=== PATIENT | male | born 1965 ===

== ENCOUNTER → 2019-06-16 | Outpatient (CLI) | payer BC | END | disposition home or self-care (01) | LOC: PREOP 05:49 | PROVIDERS: ATTEND Internal Medicine | DX: Z01.818 Encounter for other preprocedural examination (principal) ==

== ENCOUNTER 2020-03-04 09:48 | Outpatient (RCR) | payer BC ==
[~2020-03-04] VITALS: Ht 172.7 cm; Wt 69.5 kg
== END 2020-03-04 14:54 | disposition home or self-care (01) ==
LOC: PREOP 09:48
PROVIDERS: ATTEND Internal Medicine
DX: Z01.818 Encounter for other preprocedural examination (principal); Z11.59 Encounter for screening for other viral diseases
CPT/HCPCS: 87635

== ENCOUNTER 2020-03-08 07:51 | Day surgery (SDC) | payer BC ==
--- NOTE | 2019-06-23 09:22 | HISTORY AND PHYSICAL ---
DATE OF SERVICE: 06/23/2019 The patient is a 53-year-old white male who is noted to have an elevated PSA at the time of screening blood work in April, his level was 4. He denies any problems with nocturia, decrease in stream, dribbling or urinary incontinence. He has no frequency or urgency. He had not previously had screening colonoscopy, so I advised colonoscopy and digital rectal evaluation at that time as he is anxious about having digital rectal evaluation. He is deemed to be of average risk. He is not aware of any family history for colon polyps or colon cancer. The procedure was discussed with the patient and questions were answered. PAST MEDICAL HISTORY: Noncontributory. MEDICATIONS AND PAST SURGICAL HISTORY: He takes no medication and has no past surgical history. PHYSICAL EXAMINATION: VITAL SIGNS: Blood pressure 122/78. CHEST: Clear. CARDIOVASCULAR: Reveals a regular rate and rhythm without murmur, S3 or S4. 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 ASSESSMENT AND PLAN: The patient was set up for screening colonoscopy. His PSA was mildly elevated at 4 with no symptoms to suggest BPH. Careful attention to digital rectal evaluation at the time of colonoscopy with further recommendations and at minimum and early PSA in 6 months. Job ID: [id number] DocumentID: [id number] Dictated Date: 05/25/2019 16:33:54 Billing Collections Specialist Date: 05/25/2019 16:57:20 Dictated By: ODESSA HOPKINS MD [facility]
--- NOTE | 2020-03-05 08:07 | HISTORY AND PHYSICAL ---
DATE OF SERVICE: COLONOSCOPY HISTORY AND PHYSICAL HISTORY OF PRESENT ILLNESS: The patient is a 53-year-old white male seen for yearly wellness evaluation on 02/19/2020. His first PSA was slightly elevated for age, 6 months ago at which time he was noted to have moderate BPH without nodularity. He was here for an early PSA check and wellness evaluation. He denies any difficulty with decrease in stream or increase in urinary frequency. He rarely has to get up at night to go to the bathroom. There is no known family history for prostate cancer. He is not aware of any family history for colon cancer and has not accomplished screening colonoscopy in the past. He states that he has been feeling well. With COVID issues, he has not been getting as much activity and does not typically exercises on a regular basis. SOCIAL HISTORY: He is employed, with no past smoking history and occasional social alcohol intake. He has no past surgical history and takes no current medication. FAMILY HISTORY: Updated. Father at age 75, had history of vascular disease, underwent coronary artery bypass grafting in his early 70s and also had hyperlipidemia. Mother is living at the age of 80. He reports no major health problems. He has one brother in his 50s who has elevated cholesterol and three sisters with no reported health problems. None of the siblings have a history of vascular disease or malignancy. PHYSICAL EXAMINATION: GENERAL: Reveals a well-appearing male in no acute distress. VITAL SIGNS: Weight was stable at 153 pounds, BMI 24, blood pressure 130/78. CHEST: Clear. HEENT: Mallampati 2 oropharyngeal configuration. CARDIOVASCULAR: Regular rate and rhythm without murmur, S3 or S4. CHEST: Clear. ABDOMEN: Soft, supple without mass, organomegaly or tenderness. Bowel sounds positive. EXTREMITIES: Reveal no cyanosis, clubbing or edema. Ear canals were clear with normal TMs. SKIN: Evaluation revealed no suspicious nevi. ASSESSMENT AND PLAN: Unremarkable wellness evaluation. Discussed rationale for colonoscopy for which the patient was agreeable. The patient will be set up for his first screening colonoscopy. I did repeat his digital rectal evaluation today. This again was compatible with moderate BPH with no nodularity being noted. His PSA was 4.22 compared to 4 ten months ago. We will go back to yearly PSA monitoring and yearly wellness evaluation. Job ID: [id number] DocumentID: [id number] Dictated Date: 02/21/2020 16:11:26 Front End Mechanic Date: 02/21/2020 16:36:38 Dictated By: ODESSA HOPKINS MD [facility]
[~2020-03-08] VITALS: Ht 172.7 cm; Wt 69.5 kg
[2020-03-08] VITALS (12 sets, daily range): BP systolic 109–134; BP diastolic 76–98
[~2020-03-08 07:51] MED LIST: D5 LR IV SOLUTION 1,000 ML IV ONE
[2020-03-08] MEDS ORDERED: D5 LR IV SOLUTION 1,000 ML IV STA (07:59)
[2020-03-08] MEDS ORDERED: MIDAZOLAM 5 MG/5 ML (VERSED) VIAL IV PRN (08:00)
[2020-03-08] MEDS ORDERED: fentaNYL INJECTION 100 MCG/2 ML AMP IVP ONE (08:00)
[2020-03-08] MEDS ORDERED: LIDOCAINE JELLY 2% 6 ML SYRINGE MM PRN (08:00)
--- NOTE | 2020-03-08 08:03 | Pre-Op Note & Conscious Sedat ---
Pre-Operative Progress Note H&P Reviewed The H&P was reviewed, patient examined and no changes noted. Date H&P Reviewed: March 08, 2020 Time H&P Reviewed: 08:02 Conscious Sedation Pre-Proced ASA Score 2 For ASA 3 and 4: Consider anesthesia and medical clearance. Also, for patients with a history of failed moderate sedation consider anesthesia. Airway Lungs Heart ASA score ASA 1: a normal healthy patient ASA 2: a patient with a mild systemic disease (mid diabetes, controlled hypertension, obesity ASA 3: a patient with a severe systemic disease that limits activity (angina, COPD, prior Myocardial infarction) ASA 4: a patient with an incapacitating disease that is a constant threat to life (CHF, renal failure) ASA 5: a moribund patient not expected to survive 24 hrs. (ruptured aneurysm) ASA 6: a declared brain- patient whose organs are being harvested. For emergent operations, add the letter E after the classification Mallampati Classification Grade 1 Sedation Plan Analgesia, Amnesia, Plan communicated to team members, Discussed options with patient/fam, Discussed risks with patient/fam The patient is an appropriate candidate to undergo the planned procedure, sedation, and anesthesia. The patient immediately re-assessed prior to indication. ODESSA HOPKINS MD March 08, 2020 08:03
[2020-03-08] MEDS ORDERED: fentaNYL INJECTION 100 MCG/2 ML AMP ONE (08:16)
[2020-03-08] MEDS ORDERED: LIDOCAINE JELLY 2% 6 ML SYRINGE ONE (08:16)
[2020-03-08] MEDS ORDERED: MIDAZOLAM 5 MG/5 ML (VERSED) VIAL ONE (08:16)
--- OUTSIDE RECORDS SUMMARY | 2020-03-08 09:36 | XMS REPORT | Continuity of Care Document ---
Author Organization Unknown Address Unknown Phone Unavailable Allergies Active Description Code Type Severity Reaction Onset Reported/Identified Relationship to Patient Clinical Status Yes No Known Drug Allergies [id number] Drug Allergy Unknown N/A 03/04/2020 Medications There is no data. Problems Date Dx Coded Attending Type Code Diagnosis Diagnosed By 09/16/1453 ODESSA HOPKINS MD Ot Z01.818 ENCOUNTER FOR OTHER PREPROCEDURAL EXAMIN 09/16/1453 ODESSA HOPKINS MD Ot Z11. 59 ENCOUNTER FOR SCREENING FOR OTHER VIRAL 06/20/2019 ODESSA HOPKINS MD Ot Z01.818 ENCOUNTER FOR OTHER PREPROCEDURAL EXAMIN 06/21/2019 ODESSA HOPKINS MD Ot Z01.818 ENCOUNTER FOR OTHER PREPROCEDURAL EXAMIN 03/04/2020 ODESSA HOPKINS MD Ot Z01.818 ENCOUNTER FOR OTHER PREPROCEDURAL EXAMIN 03/04/2020 ODESSA HOPKINS MD Ot Z01.818 ENCOUNTER FOR OTHER PREPROCEDURAL EXAMIN 03/04/2020 ODESSA HOPKINS MD Ot Z01.818 ENCOUNTER FOR OTHER PREPROCEDURAL EXAMIN 03/04/2020 ODESSA HOPKINS MD Ot Z01.818 ENCOUNTER FOR OTHER PREPROCEDURAL EXAMIN 03/04/2020 ODESSA HOPKINS MD Ot Z01.818 ENCOUNTER FOR OTHER PREPROCEDURAL EXAMIN 03/04/2020 ODESSA HOPKINS MD Ot Z01.818 ENCOUNTER FOR OTHER PREPROCEDURAL EXAMIN 03/04/2020 ODESSA HOPKINS MD Ot Z01.818 ENCOUNTER FOR OTHER PREPROCEDURAL EXAMIN 03/04/2020 ODESSA HOPKINS MD Ot Z01.818 ENCOUNTER FOR OTHER PREPROCEDURAL EXAMIN 03/04/2020 ODESSA HOPKINS MD Ot Z01.818 ENCOUNTER FOR OTHER PREPROCEDURAL EXAMIN 03/04/2020 ODESSA HOPKINS MD Ot Z11. 59 ENCOUNTER FOR SCREENING FOR OTHER VIRAL 03/08/2020 ODESSA HOPKINS MD Ot Z01.818 ENCOUNTER FOR OTHER PREPROCEDURAL EXAMIN Procedures There is no data. Results Test Result Range Coronavirus SARS-CoV-2 SO 2018 - 0 13:15 Coronavirus Ab [Units/volume] in Serum Negative Negative Encounters ACCT No. Visit Date/Time Discharge Status Pt. Type Provider Facility Loc./Unit Complaint [id number] 03/04/2020 09:48:00 020 14:54:00 DIS Outpatient ODESSA HOPKINS MD [facility] PREOP COLONOSCOPY [id number] 06/16/2019 05:49:00 019 23:59:59 CLS Outpatient ODESSA HOPKINS MD [facility] PREOP COLONOSCOPY [id number] 03/08/2020 07:51:[address] Outpatient ODESSA HOPKINS MD [facility] ENDO SCREENING
--- NOTE | 2020-03-08 16:52 | OPERATIVE REPORT ---
DATE OF SERVICE: COLONOSCOPY SUMMARY INDICATION FOR THE PROCEDURE: Screening colonoscopy. DESCRIPTION OF PROCEDURE: The patient was placed in the left lateral decubitus position. As the patient just had a digital rectal evaluation in the office, digital rectal evaluation was not performed. The colonoscope was inserted into the rectum and under direct visualization advanced to cecum. The cecum was identified by identification of the valve and cecal strap. Photographic documentation was obtained. A careful inspection was made as the colonoscope was withdrawn. The patient tolerated the procedure well. FINDINGS: There was no evidence for internal or external hemorrhoids. Present in the mid rectum was a diminutive hyperplastic-appearing polyp. It was biopsied and ablated. The remainder of the rectum was unremarkable. The sigmoid colon, descending colon, splenic flexure, transverse colon, hepatic flexure, ascending colon, cecum and colon were unremarkable with no other evidence for neoplasia or diverticular disease. ASSESSMENT: Diminutive hyperplastic appearing polyp was removed from the mid rectum via hot forceps. This is otherwise normal colonoscopy to the cecum. I would advocate consideration for repeat screening colonoscopy in 10 years as the patient is not aware of any family history for colon cancer or polyps. Job ID: [id number] DocumentID: [id number] Dictated Date: 03/08/2020 10:51:43 Rubber Heel And Sole Press Tender Date: 03/08/2020 16:52:00 Dictated By: ODESSA HOPKINS MD
== END 2020-03-08 09:40 | disposition home or self-care (01) ==
LOC: ENDO 07:51
PROVIDERS: ATTEND Internal Medicine
DX: Z12.11 Encounter for screening for malignant neoplasm of colon (principal); K62.1 Rectal polyp; N40.0 Benign prostatic hyperplasia without lower urinary tract symptoms

== ENCOUNTER → 2022-03-05 | Outpatient (CLI) | payer SELFPAY ==
--- NOTE | 2022-03-05 13:08 | Diagnostic Imaging Report ---
EXAMINATION: CT calcium scoring without contrast. TECHNIQUE: Multiple contiguous axial images were obtained through the chest without the use of intravenous contrast for purposes of calcium scoring. All CT scans use one or more of the following dose optimizing techniques: automated exposure control, MA and/or KvP adjustment based on patient size and exam type or iterative reconstruction. HISTORY: High cholesterol COMPARISON: None available. FINDINGS: The calculated coronary artery calcium score is 6.5. There is no edema or pneumonia. No pleural effusion. No pneumothorax. No suspicious nodules. Heart size is normal. No pericardial effusion. Aorta is normal in caliber. There is no mediastinal lymphadenopathy. Limited views of the upper abdomen are unremarkable. There are no suspicious osseus lesions. IMPRESSION: 1. Calculated coronary artery calcium score of 6.5. Dictated by: Dictated on workstation # [id number]
== END ==
LOC: RAD FS 12:38
PROVIDERS: ATTEND Internal Medicine
DX: I25.10 Atherosclerotic heart disease of native coronary artery without angina pectoris (principal)
CPT/HCPCS: 75571